=== PATIENT | female | born 1960 | race Caucasian/White ===

== ENCOUNTER 2023-04-04 20:25 | Emergency (ER) | payer OTHER ==
[~2023-04-04] VITALS: Ht 149.9 cm; Wt 71.7 kg
[2023-04-04] MEDS ORDERED: KETOROLAC TROMETHAMINE INJ 30 MG/ML VIAL ONE (20:58)
[2023-04-04 21:00] LABS: BASOPHILS # (AUTO) 0.2 K/uL (0.0-0.2); BASOPHILS % (AUTO) 2.2 % (0.0-2.0); EOSINOPHILS # (AUTO) 0.2 K/uL (0.0-0.7); EOSINOPHILS % (AUTO) 2.3 % (0.0-6.0); HEMATOCRIT 40 % (33-45); HEMOGLOBIN 13.2 g/dL (11.5-14.8); LYMPHOCYTES # (AUTO) 2.5 K/uL (0.8-4.8); LYMPHOCYTES % (AUTO) 31.9 % (20.0-44.0); MEAN CORPUSCULAR HEMOGLOBIN 29 PG (26.0-33.0); MEAN CORPUSCULAR HGB CONC 33 g/dl (31.0-36.0); MEAN CORPUSCULAR VOLUME 87 fL (82-100); MONOCYTES # (AUTO) 0.6 K/uL (0.1-1.30); MONOCYTES % (AUTO) 8.1 % (2.0-12.0); NEUTROPHILS # (AUTO) 4.4 K/uL (1.8-8.9); NEUTROPHILS % (AUTO) 55.5 % (43.0-81.0); PLATELET COUNT (AUTO) 296 K/uL (150-450); RED BLOOD CELL COUNT(AUTO) 4.61 MIL/uL (4.0-5.2); RED CELL DISTRIBUTION WIDTH 13.7 % (11.5-15.0); WHITE BLOOD COUNT (AUTO) 7.9 K/uL (4.3-11.0)
[2023-04-04] MEDS ORDERED: KETOROLAC TROMETHAMINE INJ 30 MG/ML VIAL IV ONE (21:00)
[2023-04-04 21:10] LABS: CALCIUM, SERUM 9.1 mg/dL (8.5-10.1); CREATININE 0.8 mg/dL (0.6-1.3)
[2023-04-04 21:10] LABS: APPEARANCE,URINE CLEAR (CLEAR); BILIRUBIN,URINE NEGATIVE (NEGATIVE); BLOOD, URINE NEGATIVE Ery/uL (NEGATIVE); COLOR,URINE YELLOW (YELLOW); KETONES,URINE NEGATIVE (NEGATIVE); LEUKOCYTE ESTERASE ,URINE 2+ (NEGATIVE); NITRITE, URINE NEGATIVE (NEGATIVE); PROTEIN,URINE NEGATIVE (NEGATIVE); UGLUCOSE NEGATIVE (NEGATIVE); UROBILINOGEN,URINE 0.2 EU/dL (0.2)
[2023-04-04 21:18] LABS: ALBUMIN 3.8 g/dL (3.4-5.0); BILIRUBIN,DIRECT 0.1 mg/dL (0.0-0.2); BILIRUBIN,TOTAL 0.2 mg/dL (0.2-1.0); TOTAL PROTEIN, SERUM 7.1 g/dL (6.4-8.2)
[2023-04-04 21:50] LABS: ADD URINE CULTURE YES; BACTERIA,URINE Few /HPF (None Seen); RBC,URINE NONE SEEN /HPF (0-2)
[2023-04-04] MEDS ORDERED: CEPH500T PO (22:04)
[2023-04-04 23:13] VITALS: BP 109/57; TEMP 98.4; O2SAT 98
== END 2023-04-04 23:13 | disposition home or self-care (01) ==
LOC: ER 20:39
DX: N39.0 Urinary tract infection, site not specified (principal); R10.9 Unspecified abdominal pain
CPT/HCPCS: 99285; 74176; 96374; 85025; 80048; 87086; 83690; 80076; 81001; 36415; J1885

== ENCOUNTER 2024-02-25 20:33 | Emergency (ER) | payer OTHER ==
[~2024-02-25] VITALS: Ht 157.5 cm; Wt 72.6 kg
[~2024-02-25 20:33] MED LIST: CEPH500T PO
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
[2024-02-25] MEDS ORDERED: ONDANSETRON HCL/PF 4 MG/2 ML VIAL ONE ×2 (23:07→23:30)
[2024-02-25] MEDS ORDERED: MORPHINE SULFATE INJ 4 MG/ML DISP.SYRIN ONE ×2 (23:08→23:30)
[2024-02-25] MEDS: MORPHINE SULFATE INJ 2 MG/ML DISP.SYRIN IV ONE (23:12)
[2024-02-25] MEDS: ONDANSETRON HCL/PF - ER 4 MG/2 ML VIAL IV ONE (23:12)
[2024-02-25 23:16] LABS: BASOPHILS % (AUTO) 0.5 % (0.0-2.0); EOSINOPHILS # (AUTO) 0.3 K/uL (0.0-0.7); EOSINOPHILS % (AUTO) 2.8 % (0.0-6.0); HEMATOCRIT 40 % (33-45); HEMOGLOBIN 13.2 g/dL (11.5-14.8); LYMPHOCYTES # (AUTO) 2.4 K/uL (0.8-4.8); LYMPHOCYTES % (AUTO) 23.8 % (20.0-44.0); MEAN CORPUSCULAR HEMOGLOBIN 29 PG (26.0-33.0); MEAN CORPUSCULAR HGB CONC 33 g/dl (31.0-36.0); MEAN CORPUSCULAR VOLUME 87 fL (82-100); MONOCYTES # (AUTO) 0.8 K/uL (0.1-1.30); MONOCYTES % (AUTO) 8.4 % (2.0-12.0); NEUTROPHILS # (AUTO) 6.5 K/uL (1.8-8.9); NEUTROPHILS % (AUTO) 64.5 % (43.0-81.0); PLATELET COUNT (AUTO) 293 K/uL (150-450); RED BLOOD CELL COUNT(AUTO) 4.63 MIL/uL (4.0-5.2); RED CELL DISTRIBUTION WIDTH 13.4 % (11.5-15.0)
[2024-02-25 23:24] LABS: CALCIUM, SERUM 9.4 mg/dL (8.5-10.1); CREATININE 0.8 mg/dL (0.6-1.3)
[2024-02-25 23:29] LABS: ALBUMIN 3.5 g/dL (3.4-5.0); BILIRUBIN,TOTAL 0.6 mg/dL (0.2-1.0)
--- NOTE | 2024-02-25 23:50 | NUR ---
PT TAKEN TO CT
[2024-02-25] MEDS ORDERED: IV NS 0.9% 250 ML IV ONE (23:58)
[2024-02-25] MEDS ORDERED: IOHEXOL-300 100 ML VIAL IV ONE (23:58)
[2024-02-26] MEDS ORDERED: NAPR-1009 PO (02:26)
--- NOTE | 2024-02-26 03:25 | NUR ---
IV CANNULA REMOVED
--- NOTE | 2024-02-26 03:30 | NUR ---
Patient discharged to home in stable condition. Written and verbal after care instructions given. Patient verbalizes understanding of instruction.
[2024-02-26 03:32] VITALS: BP 117/69; TEMP 98.1; O2SAT 99
== END 2024-02-26 03:32 | disposition home or self-care (01) ==
LOC: ER 20:33
DX: M54.2 Cervicalgia (principal); R07.9 Chest pain, unspecified; M79.601 Pain in right arm; M79.605 Pain in left leg; V43.52XA Car driver injured in collision with other type car in traffic accident, initial encounter; Y93.89 Activity, other specified; Y92.488 Other paved roadways as the place of occurrence of the external cause; Y99.8 Other external cause status
CPT/HCPCS: 99285; 72125; 96374; 96375; 73090; 73590; 71260; 70450; 74177; 85025; 36415; 80053; J2270 ×2; J2405 ×3; J7050; Q9967

== ENCOUNTER 2024-05-22 15:27 | Emergency (ER) | payer MEDICARE, OTHER ==
[~2024-05-22] VITALS: Ht 157.5 cm; Wt 73.9 kg
[~2024-05-22 15:27] MED LIST changes: +NAPR-1009 PO
[2024-05-22] MEDS ORDERED: ONDANSETRON HCL/PF 4 MG/2 ML VIAL ONE (16:06)
[2024-05-22] MEDS ORDERED: FAMOTIDINE/PF INJ 20 MG/2 ML VIAL IV ONE (16:07)
[2024-05-22] MEDS: FAMOTIDINE/PF INJ 20 MG/2 ML VIAL IV ONE (16:21)
[2024-05-22] MEDS: IV NS 0.9% 1,000 ML BAG IV ONE (16:21)
[2024-05-22] MEDS: ONDANSETRON HCL/PF 4 MG/2 ML VIAL IVP ONE (16:21)
[2024-05-22 16:31] LABS: BASOPHILS % (AUTO) 0.3 % (0.0-2.0); EOSINOPHILS # (AUTO) 0.1 K/uL (0.0-0.7); EOSINOPHILS % (AUTO) 0.6 % (0.0-6.0); HEMATOCRIT 44 % (33-45); HEMOGLOBIN 14.5 g/dL (11.5-14.8); LYMPHOCYTES # (AUTO) 0.7 K/uL (0.8-4.8); LYMPHOCYTES % (AUTO) 6.5 % (20.0-44.0); MEAN CORPUSCULAR HEMOGLOBIN 29 PG (26.0-33.0); MEAN CORPUSCULAR HGB CONC 33 g/dl (31.0-36.0); MEAN CORPUSCULAR VOLUME 87 fL (82-100); MONOCYTES # (AUTO) 0.4 K/uL (0.1-1.30); MONOCYTES % (AUTO) 3.4 % (2.0-12.0); NEUTROPHILS # (AUTO) 9.6 K/uL (1.8-8.9); NEUTROPHILS % (AUTO) 89.2 % (43.0-81.0); PLATELET COUNT (AUTO) 295 K/uL (150-450); RED BLOOD CELL COUNT(AUTO) 5.07 MIL/uL (4.0-5.2); RED CELL DISTRIBUTION WIDTH 13.7 % (11.5-15.0); WHITE BLOOD COUNT (AUTO) 10.7 K/uL (4.3-11.0)
[2024-05-22 16:47] LABS: ALANINE AMINOTRANSFERASE 51 U/L (12-78); ALKALINE PHOSPHATASE 94 U/L (46-116); ASPARTATE AMINOTRANSFERASE 28 U/L (15-37); BILIRUBIN,DIRECT 0.1 mg/dL (0.0-0.2); BILIRUBIN,TOTAL 0.5 mg/dL (0.2-1.0); CALCIUM, SERUM 8.9 mg/dL (8.5-10.1); CARBON DIOXIDE 27 mmol/L (21-32); CHLORIDE 109 mmol/L (98-107); CREATININE 0.8 mg/dL (0.6-1.3); GLUCOSE 153 mg/dL (74-106); LIPASE 45 U/L (16-77); POTASSIUM 4.1 mmol/L (3.5-5.1); SODIUM SERUM 144 mmol/L (136-145); TOTAL PROTEIN, SERUM 7.2 g/dL (6.4-8.2); UREA NITROGEN, BLOOD 23 mg/dL (7-18)
[2024-05-22] MEDS ORDERED: ONDA4TAB5 PO (17:21)
[2024-05-22] MEDS ORDERED: IBUP-1492 PO (17:21)
[2024-05-22 18:04] VITALS: BP 114/66; TEMP 98.2; O2SAT 99
== END 2024-05-22 18:04 | disposition home or self-care (01) ==
LOC: ER 15:39
DX: R11.10 Vomiting, unspecified (principal); R10.9 Unspecified abdominal pain; Z60.2 Problems related to living alone
CPT/HCPCS: 99285; 74176; 96374; 96361; 96375; 93005; 85025; 80048; 83690; 80076; 36415; 84484; J3490; J2405; J7030